=== PATIENT | female | born 1950 ===

== ENCOUNTER 2023-12-16 06:09 | Day surgery (SDC) | payer OTHER ==
[~2023-12-16 06:09] MED LIST: JENTADUETO 2.51 EAC2 PO
[2023-12-16] MEDS ORDERED: CEFAZOLIN SODIUM 1,000 MG VIAL ONE (10:09)
[2023-12-16] MEDS ORDERED: GENTAMICIN SULFATE 40 MG/ML VIAL ONE (10:09)
[2023-12-16] MEDS ORDERED: MACROBID 100 M100 MG PO (11:31)
[2023-12-16] MEDS ORDERED: TRAM1TAB98 PO (11:31)
== END 2023-12-16 16:25 | disposition home or self-care (01) ==
LOC: CIR.AMB 06:09
PROVIDERS: ATTEND Obstetrics & Gynecology Gynecology
DX: N81.11 Cystocele, midline (principal); N81.5 Vaginal enterocele; N81.6 Rectocele; E11.9 Type 2 diabetes mellitus without complications